=== PATIENT | female | born 1985 | race Caucasian/White ===

== ENCOUNTER 2022-02-03 11:41 | Emergency (ER) | payer BC ==
--- OUTSIDE RECORDS SUMMARY | 2022-02-03 11:43 | XMS REPORT | Continuity of Care Document ---
:1985 Author Organization [facility] t Address [address] [place] [address] Care Team Providers Name Role Phone BETTY ROGER Primary Care Physician Unavailable Johanna Roger Attending Clinician Unavailable VEE STEELE Attending Clinician Unavailable Vee Steele MD Attending Clinician Doctor Unassigned, Name Attending Clinician Unavailable RAZA PARKS Attending Clinician Unavailable Payers Payer Name Policy Type Policy Number Effective Date Expiration Date S ource HIM BCBS BLUE [id number] 2020 ADVANTAGE HMO 00:00:00 BCBS ADV HMO [id number] 2020 EXCHANGE 00:00:00 Problems Condition Condition Condition Status Onset Resolution Last Treating Co mments Source Name Details Category Date Date Treatment Clinician Date Well woman Well woman Disease Active U nivers exam with exam with 05-07 ity of routine routine 00:00: [place] gynecologi gynecologi 00 Me dical hailey exam hailey exam Branch History of History of Disease Active U nivers PCOS PCOS 05-07 ity of 00:00: [place] 00 Medical Branch Elevated Elevated Disease Active Unive rs blood blood 05-07 ity of pressure pressure 00:00: [place] reading reading 00 Medical without without Branch diagnosis diagnosis of of hypertensi hypertensi on on Morbid Morbid Disease Active Univers obesity obesity 05-07 [place] of [place] mass index 00 [place] dical of of Branch 40.0-49.9 40.0-49.9 Allergies, Adverse Reactions, Alerts Allergy Allergy Status Severity Reaction(s) Onset Inactive Treating Comm ents Source Name Type Date Date Clinician NO KNOWN Drug Active Univers ALLERGIE Class ity of S [facility] NO KNOWN Allergy Active [facility] Social History Social Habit Start Date Stop Date Quantity Comments Source Exposure to Not sure [facility] SARS-CoV-2 [facility] [place] Alcohol intake 2021-11-04 2021-11-04 Current drinker Unive rsity of 00:00:00 00:00:00 of alcohol [facility] (finding) [place] Tobacco use and 2021-05-07 2021-05-07 Never used Universit y of exposure 00:00:00 00:00:00 [facility] Sex Ass[birth year] Universit y of 00:00:00 00:00:00 [facility] Smoking Status Start Date Stop Date Source Never smoker [facility] Medications Ordered Filled Start Stop Current Ordering Indication Dosage Frequency Signature Comments Components Source Medication Medication Date Date Medication? Clinician (SIG) Name Name miSOPROStoL 2020-11- No [id number] Take one Univers 200 mcg 2-14 -29 tablet ity of tablet 00:00: 00:00 night [place] 00 :00 before Medical procedure, Branch then take one tablet morning of procedure miSOPROStoL 2020-11- No [id number] Take one Univers 200 mcg 2-14 12-29 tablet ity of tablet 00:00: 00:00 night [place] 00 :00 before Medical procedure, Branch then take one tablet morning of procedure citalopram Yes 20mg Take 20 mg U nivers 20 mg 6-04 by mouth ity of tablet 00:00: daily. [place] [facility] citalopram Yes 20mg Take 20 mg U nivers 20 mg 6-04 by mouth ity of tablet 00:00: daily. [place] [facility] citalopram Yes 20mg Take 20 mg U nivers 20 mg 6-04 by mouth ity of tablet 00:00: daily. [address] metformin Yes TAKE ONE Univ ers ER 500 mg 4-27 (1) ity of 24 hr 00:00: TABLET(S) [place] tablet 00 BY MOUTH Medical TWICE A Branch DAY WITH FOOD. metformin Yes TAKE ONE Univ ers ER 500 mg 4-27 (1) ity of 24 hr 00:00: TABLET(S) [place] tablet 00 BY MOUTH Medical TWICE A Branch DAY WITH FOOD. metformin Yes TAKE ONE Univ ers ER 500 mg 4-27 (1) ity of 24 hr 00:00: TABLET(S) [place] tablet 00 BY MOUTH Medical TWICE A Branch DAY WITH FOOD. Tamiflu Tamiflu Yes Gin [address] [facility] Duexis Duexis 2019- No Gin [address] 1[facility]: [facility]00 [facility] 00 :00 l [facility] ent Clinics Citalopram Citalopram Yes Gin [address] [facility] Hydrobromid Hydrobromid Jose [facility] - e e [facility] ent Clinics Immunizations Ordered Filled Immunization Date Status Comments [facility] e Immunization Name Name Flucelvax - Flucelvax - 2019-08-[address] [facility] - multidose vial multidose vial [facility] Vital Signs Vital Name Observation Time Observation Value Comments Source Systolic blood 2021-11-04 20:39:00 119 mm[Hg] Univer sity of pressure [facility] Diastolic blood 2021-11-04 20:39:00 73 mm[Hg] Unive rsity of [facility] Heart rate 2021-11-04 20:38:00 99 /min [facility] Body temperature 2021-11-04 20:38:00 36.56 [facility] Body height 2021-11-04 20:38:00 160 cm [facility] Body weight 2021-11-04 20:38:00 123.832 kg [facility] BMI 2021-11-04 20:38:00 48.36 kg/m2 [facility] HEIGHT 2021-10-21 11:42:00 160 cm WEIGHT 2021-10-21 11:42:00 123.333 kg Procedures Procedure Date / Time Performed Performing Clinician [facility] e DISCLOSURE AND CONSENT 2021-11-04 06:01:00 Doctor Unassigned, No [facility] MEDICAL & SURGICAL Name Medical Bran h PROCEDURES - FEMALM POCT TEST 2021-11-04 00:00:00 Tigre Steele [facility] Encounters Start End Encounter Admission Attending Care Care Encounter Source Date/Time Date/Time Type Type Clinicians Facility Department ID 2021-12-29 Outpatient Roger, [facility] [place] [id number] [facility] 2021-12-24 Outpatient Roger, [facility] 11[facility]33:02 [place] [id number] [facility] 2021-12-02 Outpatient Roger, [facility] 14:16:27 [place] [id number] [facility] 2021-12-02 Outpatient Roger, [facility] 14:03:51 [place] [id number] [facility] 2021-12-02 Outpatient Roger, [facility] [id number] 13[facility]53:39 [place] [id number] [facility] 2021-12-02 Outpatient Roger, [facility] [id number] 13[facility]15:34 [place] [id number] [facility] 2021-12-02 Outpatient Roger, [facility] [id number] [facility] 12:54:19 [place] [id number] [facility] 2021-12-02 Outpatient Roger, [facility] [id number] 12:01:40 [place] [id number] [facility] 2021-12-02 Outpatient Roger, [facility] [id number] 11:59:23 [place] [id number] [facility] 2021-12-02 Outpatient Roger, [facility] [id number] 11:55:34 [place] [id number] [facility] 2021-12-02 Outpatient Roger, [facility] [id number] 11:08:06 [place] [id number] [facility] 2021-12-02 Outpatient Roger, [facility] [id number] 11:06:06 [place] [id number] [facility] 2021-12-28 2021-12-28 ambulatory [facility] [id number] [facility] 2021-11-25 2021-11-25 Outpatient R TIGRE STEELE [facility] [id number] Univers 13:00:00 13:00:00 ity of [facility] 2021-11-04 2021-11-04 Office [facility] [id number] Univers 14:30:00 14:59:27 Visit Vee DANIEL [id number] i ty [facility] [id number] [place] [id number] [place] [address] 2021-11-04 2021-11-04 Outpatient R TIGRE STEELE [facility] [id number] Univers 14:30:00 14:59:27 ity of [facility] 2021-11-04 2021-11-04 Orders Doctor LOTT [id number] Univers 00:00:00 00:00:00 Only Unassigned, ROSLYN [id number] ity [facility] [id number] Brett as [id number] [address] 2021-10-21 2021-10-21 Outpatient KASEY [facility] [id number] 11:15:25 13:02:33 [facility] 2021-10-21 2021-10-21 ambulatory [facility] [id number] [facility] 2021-10-12 2021-10-12 ambulatory [facility] [id number] [facility] 2021-09-29 2021-09-29 ambulatory [facility] [id number] [facility] 2021-08-31 2021-08-31 Outpatient [facility] [id number] [facility] 2021-08-12 2021-08-12 Outpatient [facility] [id number] [facility] 2021-08-12 2021-08-12 Outpatient [facility] [id number] [facility] 2021-08-03 2021-08-03 Outpatient [facility] [id number] [facility] 2021-07-09 2021-07-09 Outpatient [facility] [id number] [facility] 2021-04-21 2021-04-21 Outpatient [facility] [id number] [facility] 2021-04-14 2021-04-14 Outpatient [facility] [id number] [facility] 2021-02-26 2021-02-26 Outpatient [facility] [id number] [facility] 2021-02-25 2021-02-25 Outpatient [facility] [id number] [facility] 2021-02-19 2021-02-19 Outpatient [facility] [id number] [facility] 2020-12-17 2020-12-17 Outpatient [facility] [id number] [facility] 2020-12-17 2020-12-17 Outpatient [facility] [id number] [facility] 2020-12-07 2020-12-07 Outpatient [facility] [id number] [facility] 2020-09-10 2020-09-10 Outpatient [facility] [id number] [facility] 2020-09-03 2020-09-03 Outpatient [facility] [id number] [facility] 2020-08-21 2020-08-21 Outpatient [facility] [id number] [facility] 2020-08-21 2020-08-21 Outpatient [facility] [id number] [facility] 2020-03-10 2020-03-10 [facility] [id number] 11:12:00 11:12:[address] [facility] Medicine l Medicine Outpati ent Clinics 2020-03-06 2020-03-06 [facility] [id number] 13:40:00 13:40:[address] [facility] Medicine l Medicine Outpati ent Clinics 2020-03-05 2020-03-05 [facility] [id number] 13:27:00 13:27:00 t Baxter Baxter [facility]ious [facility] - [facility] Medicine Medicine Outpati ent Clinics 2019-12-24 2019-12-24 [facility] [id number] 10:15:00 10:15:[address] [facility] - [address] [facility] Medicine Outpat[facility] Clinics 2019-12-07 2019-12-07 [facility] [id number] 14:35:00 14:35:00 t Baxter Baxter [facility] - [facility] Medicine l Medicine Outpati ent Clinics 2019-10-19 2019-10-19 [facility] [id number] 09:15:00 09:15:00 t Baxter Baxter [facility] [employer] [facility] - [address] [facility] Outpat[facility] Clinics 2019-10-11 2019-10-11 [facility] [id number] 16:12:00 16:12:00 t Baxter Baxter [facility] [employer] [facility] - [address] [facility] Medicine Outpati ent Clinics 2019-08-20 2019-08-20 [facility] [id number] 10:15:00 10:15:00 t Baxter Baxter [facility] [employer] - [address] [facility] Medicine Outpati ent Clinics 2019-06-19 2019-06-19 [facility] [id number] 10:30:00 10:30:00 t Baxter Baxter [facility] [employer] - [address] [facility] Medicine Medicine Outpati ent Clinics 2019-05-29 2019-05-29 [facility] [id number] 08:15:00 08:15:00 t Baxter Baxter [facility] [place] [facility] - [facility] Medicine Medicine Outpati ent Clinics 2019-05-23 2019-05-23 [facility] [id number] 13:15:00 13:15:00 t Baxter Baxter [facility] [employer] - [address] [facility] Medicine Outpati ent Clinics 2018-12-21 2018-12-21 [facility] [id number] 11:32:00 11:32:00 t Baxter Baxter [facility] [place] [facility] - [address] [facility] Medicine Outpat[facility] Clinics 2018-12-20 2018-12-20 [facility] [id number] 10:30:00 10:30:00 [employer] [facility] 2018-12-01 2018-12-01 [facility] [id number] 17:07:00 17:07:00 t [facility] 2018-11-30 2018-11-30 [facility] [id number] [facility] 14:15:00 14:15:00 [employer] [facility] ent Clinics Results Test Description Test Time Test Comments Results Result Comments Source POCT TEST 2021-11-04 20:41:00 Test Item Value Reference Range Interpretation Comme nts POCT PREG (test code = 1605) Negative On board controls acceptable with C Line (test code = 3574) Yes POCT PREG LOT # (test code = 3575) POCT PREG TEST DATE (test code = 3576) [id number] 20:41:00 Test Item Value Reference Range Interpretation Comments POCT PREG (test code = 1605) Negative On board controls acceptable with C Yes Line (test code = 3574) POCT PREG LOT # (test code = 3575) POCT PREG TEST DATE (test code = 3576) [facility]
[2022-02-03] MEDS ORDERED: ONDANSETRON 4 MG/2 ML VIAL ONE (12:12)
[2022-02-03] MEDS ORDERED: NA CHLORIDE 0.9% 1,000 ML ONE (12:12)
[2022-02-03 12:18] LABS: Urine Blood Negative (Negative); Urine Glucose Negative (Negative); Urine Protein Trace (Negative); Urine Specific Gravity >=1.030 (1.005-1.030)
[2022-02-03 12:41] LABS: Absolute Lymphocytes (CBC) 0.8 K/uL (0.7-4.9); Hematocrit 34.6 % (36.0-45.0); Lymphocytes % 11.7 % (15.3-44.8); MPV 7.6 fL (7.6-11.3); RBC Red Blood Cell Count 4.42 M/uL (3.86-4.86)
[2022-02-03 12:52] LABS: Urine Specific Gravity/Preg >1.030 (1.005-1.030)
[2022-02-03 13:04] LABS: ALT/SGPT 27 U/L (12-78); AST/SGOT 23 U/L (15-37); Albumin 3.4 g/dL (3.4-5.0); Alkaline Phosphatase 95 U/L (45-117); BUN Blood Urea Nitrogen 12 mg/dL (7-18); Bicarbonate 23 mmol/L (21-32); Bilirubin Total 0.3 mg/dL (0.2-1.0); Glucose Level 97 mg/dL (74-106); Lipase 73 U/L (73-393); Potassium 3.4 mmol/L (3.5-5.1); Protein, Total 7.6 g/dL (6.4-8.2); Sodium Level 135 mmol/L (136-145)
--- NOTE | 2022-02-03 13:52 | RAD REPORT ---
EXAM DESCRIPTION: CT - Abdomen Pelvis W Contrast - 02/03/2022 1:35 pm CLINICAL HISTORY: Abdominal pain COMPARISON: none. TECHNIQUE: Computed axial tomography of the abdomen pelvis was obtained. 100 cc Isovue-300 was admin istered intravenously. Oral contrast was not requested which limits evaluation of bowel. All CT scans are performed using dose optimization technique as appropriate and may include automated exposure control or mA/KV adjustment according to patient size. FINDINGS: Cholecystectomy. The liver, spleen, pancreas, adrenal and right kidney appear unremarkable. Tiny nonobstructing left renal calculus. There is no evidence of diverticulitis. Normal appendix. Small umbilical hernia No adnexal mass. Postsurgical changes involve the stomach IMPRESSION: No acute abnormality is displayed.
--- NOTE | 2022-02-03 14:00 | ER ---
Nurse's Notes [facility] Name: Raisa Kamara Age: 36 yrs Sex: Female : 1985 Arrival Date: 02/03/2022 Time: 11:43 Bed 9 Private MD: Diagnosis: Abdominal pain, Generalized;Diarrhea, unspecified Presentation: 02/03 11:51 Chief complaint: Patient states: "I've had a fever, abdominal pain and diarrhea for 2 ab2 days." Pt took Tylenol at 1045. Pt c/o LUQ pain. Coronavirus screen: Vaccine status: Patient reports receiving the 2nd dose of the covid vaccine. Client denies travel out of the [place] in the last 14 days. chills, diarrhea, fatigue, fever, Client presents with at least one sign or symptom that may indicate coronavirus-19. Standard/surgical mask placed on the client. Provider contacted for isolation considerations. Ebola Screen: Patient negative for fever greater than or equal to 101.5 degrees Fahrenheit, and additional compatible Ebola Virus Disease symptoms Patient denies exposure to infectious person. Patient denies travel to an Ebola-affected area in the 21 days before illness onset. No symptoms or risks identified at this time. Initial Sepsis Screen: Does the patient meet any 2 criteria? No. Patient's initial sepsis screen is negative. Does the patient have a suspected source of infection? No. Patient's initial sepsis screen is negative. Risk Assessment: Do you want to hurt yourself or someone else? Patient reports no desire to harm self or others. Onset of symptoms is unknown. 11:51 Method Of Arrival: Ambulatory ab2 11:51 Acuity: RONEY 3 ab2 Historical: - Allergies: 11:52 No Known Allergies; ab2 - PMHx: 11:52 None; ab2 - PSHx: 11:52 section; Gastric Sleeve; ab2 - Immunization history:: Adult Immunizations up to date. - Social history:: Smoking status: Patient denies any tobacco usage or history of. Screenin:53 Abuse screen: Denies threats or abuse. Denies injuries from another. Nutritional ab2 screening: No deficits noted. Tuberculosis screening: No symptoms or risk factors identified. Fall Risk None identified. Assessment: 11:53 General: Appears in no apparent distress. uncomfortable, Behavior is calm, cooperative, ab2 appropriate for age. Pain: Complains of pain in left upper quadrant Pain currently is 7 out of 10 on a pain scale. Neuro: Level of Consciousness is awake, alert, obeys commands, Oriented to person, place, time, situation, Appropriate for age [employer] are equal bilaterally Moves all extremities. Cardiovascular: No deficits noted. Denies chest pain, shortness of breath, Heart tones S1 S2 present. Respiratory: No deficits noted. Airway is patent Respiratory effort is even, unlabored, Respiratory pattern is regular, symmetrical, Breath sounds are clear bilaterally. GI: Abdomen is round non-distended, Bowel sounds present X 4 quads. Abdomen is tender to palpation in left upper quadrant Reports upper abdominal pain, diarrhea. : No deficits noted. No signs and/or symptoms were reported regarding the genitourinary system. EENT: No deficits noted. No signs and/or symptoms were reported regarding the EENT system. Derm: Skin is intact, Skin is clammy. Vital Signs: 11:51 BP 140 / 89; Pulse 88; Resp 18; Temp 98.3(O); Pulse Ox 98% on R/A; Weight 124.74 kg; ab2 Height 5 ft. 3 in. (160.02 cm); Pain 7/10; 13:13 BP 129 / 82; Pulse 83; Resp 18; Pulse Ox 97% on R/A; ab2 14:01 BP 136 / 81; Pulse 73; Resp 17; Pulse Ox 98% on R/A; Pain 1/10; ab2 11:51 Body Mass Index 48.71 (124.74 kg, 160.02 cm) ab2 ED Course: 11:43 Patient arrived in ED. rg4 11:44 [facility]id [facility]lamas [facility]C [facility] kb 11:44 John Hernandez DO is Attending Physician. kb 11:50 Jeff Nunez is Primary Nurse. ab2 11:52 Triage completed. ab2 11:55 Arm band placed on right wrist. ab2 11:55 Patient has correct armband on for positive identification. Bed in low position. Call ab2 light in reach. Side rails up X2. Adult w/ patient. 12:00 Inserted saline lock: 20 gauge in left forearm, using aseptic technique. Blood ab2 collected. 12:12 Flu Sent. ab2 12:12 CBC with Diff Sent. ab2 12:12 CMP Sent. ab2 12:12 Lipase Sent. ab2 12:23 No provider procedures requiring assistance completed. ab2 13:36 CT Abd/Pelvis - IV Contrast Only In Process Unspecified. EDMS 14:07 IV discontinued, intact, bleeding controlled, No redness/swelling at site. Pressure ab2 dressing applied. Administered Medications: 12:12 Drug: NS 0.9% 1000 ml Route: IV; Rate: 1 bolus; Site: left forearm; ab2 14:07 Follow up: Response: No adverse reaction; IV Status: Completed infusion ab2 12:12 Drug: Zofran (Ondansetron) 4 mg Route: IVP; Site: left forearm; ab2 14:08 Follow up: Response: No adverse reaction ab2 Outcome: 13:59 Discharge ordered by . terri 14:07 Discharged to home ambulatory. ab2 14:07 Condition: good 14:07 Discharge instructions given to patient, Instructed on discharge instructions, follow up and referral plans. medication usage, Demonstrated understanding of instructions, follow-up care, medications, Prescriptions given X 2. 14:08 Patient left the ED. ab2 Signatures: Dispatcher [employer] EDMS Enid Llamas, [facility] CLIENT SERVICES ASSISTANT-Jie Lee4 Jeff Nunez ab2
--- NOTE | 2022-02-03 14:00 | EDPHYS ---
Physician Documentation [facility] Name: Raisa Kamara Age: 36 yrs Sex: Female : 1985 Arrival Date: 02/03/2022 Time: 11:43 Bed 9 Private MD: ED Physician John Hernandez HPI: 02/03 13:54 This 36 yrs old Female presents to ER via Ambulatory with complaints of Abdominal Pain, kb Back Pain, Fever. 13:54 The patient presents with abdominal pain that is diffuse. Onset: The symptoms/episode kb began/occurred yesterday. The symptoms do not radiate. Associated signs and symptoms: Pertinent positives: diarrhea, fever, nausea. The symptoms are described as constant. Modifying factors: The symptoms are alleviated by nothing, the symptoms are aggravated by nothing. Severity of pain: At its worst the pain was moderate in the emergency department the pain is unchanged. The patient has not experienced similar symptoms in the past. The patient has not recently seen a physician. 13:58 Pt reports fever, diarrhea, nausea and abd pain that started yesterday. Pt's children kb recently had a stomach virus. Historical: - Allergies: 11:52 No Known Allergies; ab2 - PMHx: 11:52 None; ab2 - PSHx: 11:52 section; Gastric Sleeve; ab2 - Immunization history:: Adult Immunizations up to date. - Social history:: Smoking status: Patient denies any tobacco usage or history of. ROS: 13:53 Respiratory: Negative for shortness of breath, cough, wheezing, and pleuritic chest kb pain. 13:53 Constitutional: Positive for fever. 13:53 Abdomen/GI: Positive for abdominal pain, nausea, diarrhea. 13:53 All other systems are negative. Exam: 13:53 Constitutional: This is a well developed, well nourished patient who is awake, alert, kb and in no acute distress. Head/Face: Normocephalic, atraumatic. ENT: Moist Mucous membranes Cardiovascular: Regular rate and rhythm with a normal S1 and S2. No gallops, murmurs, or rubs. No pulse deficits. Respiratory: Respirations even and unlabored. No increased work of breathing. Talking in full sentences Skin: Warm, dry with normal turgor. Normal color. MS/ Extremity: Pulses equal, no cyanosis. Neurovascular intact. Full, normal range of motion. Neuro: Awake and alert, GCS 15, oriented to person, place, time, and situation. Moves all extremities. Normal gait. Psych: Awake, alert, with orientation to person, place and time. Behavior, mood, and affect are within normal limits. 13:53 Abdomen/GI: Inspection: abdomen appears normal, Bowel sounds: normal, in all quadrants, Palpation: soft, in all quadrants, mild abdominal tenderness, in all quadrants. Vital Signs: 11:51 BP 140 / 89; Pulse 88; Resp 18; Temp 98.3(O); Pulse Ox 98% on R/A; Weight 124.74 kg; ab2 Height 5 ft. 3 in. (160.02 cm); Pain 7/10; 13:13 BP 129 / 82; Pulse 83; Resp 18; Pulse Ox 97% on R/A; ab2 14:01 BP 136 / 81; Pulse 73; Resp 17; Pulse Ox 98% on R/A; Pain 1/10; ab2 11:51 Body Mass Index 48.71 (124.74 kg, 160.02 cm) ab2 MDM: 11:44 Patient medically screened. kb 13:53 Data reviewed: vital signs, nurses notes. Data interpreted: Pulse oximetry: on room air kb is 97 %. Interpretation: normal. Counseling: I had a detailed discussion with the patient and/or guardian regarding: the historical points, exam findings, and any diagnostic results supporting the discharge/admit diagnosis, lab results, radiology results, the need for outpatient follow up, a family practitioner, to return to the emergency department if symptoms worsen or persist or if there are any questions or concerns that arise at home. 02/03 11:50 Order name: CBC with Diff; Complete Time: 12:46 kb 02/03 11:50 Order name: CMP; Complete Time: 13:06 kb 02/03 11:50 Order name: Lipase; Complete Time: 13:06 kb 02/03 11:50 Order name: Flu; Complete Time: 13:51 kb 02/03 12:18 Order name: Urine Dipstick-Ancillary; Complete Time: 12:18 EDMS 02/03 12:26 Order name: Urine --Ancillary (enter results); Complete Time: 12:53 bd 02/03 11:50 Order name: IV Saline Lock; Complete Time: 12:12 kb 02/03 11:50 Order name: Labs collected and sent; Complete Time: 12:12 kb 02/03 11:50 Order name: Urine Dipstick-Ancillary (obtain specimen); Complete Time: 12:17 kb 02/03 11:50 Order name: Urine Test (obtain specimen); Complete Time: 12:17 kb 02/03 11:50 Order name: CT Abd/Pelvis - IV Contrast Only; Complete Time: 13:52 kb 02/03 12:17 Order name: Labs - recollect needed; Complete Time: 12:49 ss Administered Medications: 12:12 Drug: NS 0.9% 1000 ml Route: IV; Rate: 1 bolus; Site: left forearm; ab2 14:07 Follow up: Response: No adverse reaction; IV Status: Completed infusion ab2 12:12 Drug: Zofran (Ondansetron) 4 mg Route: IVP; Site: left forearm; ab2 14:08 Follow up: Response: No adverse reaction ab2 Disposition: 14:55 Co-signature as Attending Physician, John MONTALVO was immediately available on-site ms3 in the Emergency Department for consultation in the care of the patient.. Disposition Summary: 02/03/22 13:59 Discharge Ordered Location: Home kb Condition: Stable kb Diagnosis - Abdominal pain, Generalized kb - Diarrhea, unspecified kb Followup: kb - With: Emergency Department - When: As needed - Reason: Worsening of condition Followup: kb - With: Private Physician - When: 2 - 3 days - Reason: Recheck today's complaints, Continuance of care, Re-evaluation by your physician Discharge Instructions: - Discharge Summary Sheet kb - Food Choices to Help Relieve Diarrhea, Adult kb - Abdominal Pain, Adult, [id number] kb - Diarrhea, Adult, [id number] kb Forms: - Medication Reconciliation Form kb - Thank You Letter kb - Antibiotic Education kb - Prescription Opioid Use kb Prescriptions: - Zofran 4 mg Oral Tablet - take 1 tablet by ORAL route every 6 hours As needed; 20 tablet; Refills: 0, kb Product Selection Permitted - dicyclomine 20 mg Oral Tablet - take 1 tablet by ORAL route 4 times per day As needed; 20 tablet; Refills: 0, kb Product Selection Permitted Signatures: Dispatcher [employer] Enid Cardona FNP-C FNP-Ckb Ann Marie Mustafa, RN RN ss John Hernandez, DO DO ms3 Jeff Nunez ab2 Corrections: (The following items were deleted from the chart) 13:58 13:54 Onset: The symptoms/episode began/occurred yesterday, kb kb
[2022-02-03 14:15] VITALS: TEMP 98.3
[2022-02-03 14:19] VITALS: BP 136/81; O2SAT 98
== END 2022-02-03 14:08 | disposition home or self-care (01) ==
LOC: ER 11:41
DX: R19.7 Diarrhea, unspecified (principal); R50.9 Fever, unspecified
CPT/HCPCS: 85025; 36415; 81025; 81003; 83690; 80053; 87804 ×2; 74177; Q9967; J7030; J2405